=== PATIENT | male | born 1940 | race Caucasian/White ===

== ENCOUNTER 2019-12-08 11:16 | Emergency (ER) | payer OTHER ==
[2019-12-08 11:57] LABS: BASOPHILS % (AUTO) 0.1 % (0.0-5.0); HEMATOCRIT 40.5 % (42-54); LYMPHOCYTES % (AUTO) 3.7 % (21.0-51.0); MEAN CORPUSCULAR HEMOGLOBIN 31.1 pg (27.0-33.0); MEAN CORPUSCULAR HGB CONC 34.3 g/dL (32.0-36.0); MEAN CORPUSCULAR VOLUME 90.6 fL (79-99); MONOCYTES % (AUTO) 8.1 % (3.0-13.0); NEUTROPHILS % (AUTO) 87.6 % (40.0-77.0); PLATELET COUNT (AUTO) 221 K/uL (130-400); RED BLOOD CELL COUNT(AUTO) 4.47 MIL/uL (4.50-6.20); RED CELL DISTRIBUTION WIDTH 12.5 % (11.0-15.5); WHITE BLOOD COUNT (AUTO) 16.5 K/uL (4.8-10.8)
[2019-12-08 12:09] LABS: INR 1.09 (0.85-1.15); PROTHROMBIN TIME 11.4 SEC (9.6-11.6)
[2019-12-08 12:23] LABS: CREATININE 0.9 mg/dL (0.5-1.5); POTASSIUM 4.2 mmol/L (3.5-5.1)
[2019-12-08 12:27] LABS: ALBUMIN 3.8 g/dL (3.5-5.0); BILIRUBIN,DIRECT 0.3 mg/dL (0.0-0.3); BILIRUBIN,TOTAL 1.2 mg/dL (0.2-1.0); TOTAL PROTEIN, SERUM 7.5 g/dL (6.0-8.3)
[2019-12-08] MEDS ORDERED: ONDANSETRON HCL 4 MG/2 ML VIAL ONE (12:48)
[2019-12-08] MEDS ORDERED: SODIUM CHLORIDE 0.9% 1000ML 1,000 ML IV ONE (12:49)
[2019-12-08] MEDS ORDERED: KETOROLAC TROMETHAMINE 30MG/ML ONE (12:49)
[2019-12-08] MEDS ORDERED: CEFTRIAXONE SODIUM 1 GM ONE (14:04)
[2019-12-10] MEDS ORDERED: ONDA4TAB4 PO (04:54)
[2019-12-10] MEDS ORDERED: LISI1TAB29 PO (04:54)
[2019-12-10] MEDS ORDERED: TYL3B PO (05:13)
[2019-12-10] MEDS ORDERED: METR-172 PO (05:13)
[2019-12-10] MEDS ORDERED: PERSER VISION (05:13)
== END 2019-12-08 15:55 | disposition home or self-care (01) ==
LOC: EDH 11:16
DX: K52.9 Noninfective gastroenteritis and colitis, unspecified (principal); I10 Essential (primary) hypertension
CPT/HCPCS: 36415; 74176; 80048; 80076; 82550; 83690; 84484; 85025; 85610; 85730; 93005; 96361; 96374; 96375; 99285; J0696; J1885; J2405; J7030